=== PATIENT | male | born 1945 | race Caucasian/White ===

== ENCOUNTER 2020-11-24 05:32 | Day surgery (SDC) | payer MEDICARE ==
[2020-11-17 14:50] LABS: BASOPHILS # (AUTO) 0.1 X10'3 (0-0.2); BASOPHILS % (AUTO) 1.2 % (0-1); EOSINOPHILS # (AUTO) 0.3 X10'3 (0-0.9); EOSINOPHILS % (AUTO) 4.7 % (0-6); LYMPHOCYTES # (AUTO) 1.5 X10'3 (1.1-4.8); LYMPHOCYTES % (AUTO) 21.2 % (21-51); MEAN CORPUSCULAR HGB CONC 33.9 g/dL (33.0-36.5); MEAN CORPUSCULAR VOLUME 91.6 FL (78-98); MEAN PLATELET VOLUME 6.9 FL (7.4-10.4); MONOCYTES # (AUTO) 0.6 X10'3 (0-0.9); MONOCYTES % (AUTO) 9.2 % (2-12); NEUTROPHILS # (AUTO) 4.5 X10'3 (1.8-7.7); NEUTROPHILS % (AUTO) 63.7 % (42-75); PRE OP HEMATOCRIT 47.4 % (42.0-52.0); PRE OP PLATELET COUNT 271 X10'3 (140-440); RED BLOOD COUNT 5.17 X10'6 (4.70-6.10); RED CELL DISTRIBUTION WIDTH 14.1 % (11.5-14.5)
[2020-11-17 14:59] LABS: CLARITY,URINE CLEAR (Clear); COLOR,URINE YELLOW (Yellow); GLUCOSE, URINE NEGATIVE (Neg); KETONES,URINE NEGATIVE (Neg); LEUKOCYTE ESTERASE ,URINE NEGATIVE (Neg); NITRITES, URINE NEGATIVE (Neg); OCCULT BLOOD,URINE NEGATIVE (Neg); PH,URINE 5.5 (4.8-8.0); PROTEIN,URINE NEGATIVE (Neg); UROBILINOGEN,URINE 0.2 E.U/dL (0.2-1.0)
[2020-11-17 15:00] LABS: ALBUMIN 4.1 G/DL (3.4-5.0); ALBUMIN/GLOBULIN RATIO 1.3 (1.1-1.5); ALKALINE PHOSPHATASE 64 IU/L (46-116); BLOOD UREA NITROGEN 22 MG/DL (7-18); BUN/CREATININE RATIO 21.2 (5.4-32.0); CALCIUM 9.1 MG/DL (8.5-10.1); CHLORIDE 108 MMOL/L (99-107); CREATININE 1.04 MG/DL (0.60-1.10); PRE OP ALT 17 U/L (30-65); PRE OP ANION GAP 7 (8-16); PRE OP AST 13 U/L (10-37); PRE OP BILIRUB, TOTAL 0.4 MG/DL (0.0-1.0); PRE OP GLUCOSE 101 MG/DL (70-104); PRE OP SODIUM 145 MMOL/L (135-145); TOTAL CARBON DIOXIDE 29.6 MMOL/L (24-32); TOTAL PROTEIN 7.3 G/DL (6.4-8.2); eGFR 69 ML/MIN
[2020-11-17 15:04] LABS: UA COLLECTION TYPE VOIDED
[~2020-11-24] VITALS: Ht 172.7 cm; Wt 94.5 kg
[2020-11-24] VITALS (7 sets, daily range): BP systolic 120–158; BP diastolic 70–99
[~2020-11-24 05:32] MED LIST: PRAV10TA39 PO; TIMO1DRO8 EACHEYE; VALS1TAB77 PO; cefazolin/dext.iso 2gm/100ml IV ONE; famotidine 20mg tablet PO ONE; ringers solution, lacted 1,000 ML IV SCH
[2020-11-24] MEDS ORDERED: BUPIVAcaine/PF 2.5mg/ml (0.25%) 10ml vial ONE (07:39)
[2020-11-24] MEDS ORDERED: BUPIVAcaine 0.5% inj/PF 30 ML ONE (07:42)
[2020-11-24] MEDS ORDERED: bacitracin 15gm ointment TP ONE (07:42)
[2020-11-24] MEDS ORDERED: sevoflurane 250ml liquid IH ONE (07:51)
[2020-11-24] MEDS ORDERED: fentaNYL/PF 50MCG/1 ML 2ML syringe ONE (07:56)
[2020-11-24] MEDS ORDERED: midazolam 1 mg/ML 2ml injection ONE (07:57)
[2020-11-24] MEDS ORDERED: LIDOcaine 2% (20mg/ml) 5ml vial ONE (08:21)
[2020-11-24] MEDS ORDERED: dexamethasone sod phosphate 4mg/ml inj. ONE (08:21)
[2020-11-24] MEDS ORDERED: propofol inj 20 ML IV ONE (08:21)
[2020-11-24] MEDS ORDERED: ondansetron/PF 4mg/2ml inj ONE (08:21)
[2020-11-24] MEDS ORDERED: meperidine/PF 25mg/ml syringe IV PRN ×3 (08:40)
[2020-11-24] MEDS ORDERED: acetaminophen 1,000mg/100ml IV 100 ML IV PRN (08:40)
[2020-11-24] MEDS ORDERED: ringers solution, lacted 1,000 ML IV SCH (08:40)
[2020-11-24] MEDS ORDERED: ondansetron/PF 4mg/2ml inj IV PRN (08:40)
[2020-11-24] MEDS ORDERED: morphine 4 MG/ML inj SYRINge IV PRN (08:40)
[2020-11-24] MEDS ORDERED: labetalol 20mg/4ml (5mg/ml) syringe IV PRN (08:40)
[2020-11-24] MEDS ORDERED: hydrALAZINE 20mg/ml inj. IV PRN (08:40)
[2020-11-24] MEDS ORDERED: proCHLORperazine 10 MG/2 ml inj IV PRN (08:40)
[2020-11-24] MEDS ORDERED: morphine 2 MG/ML inj. syringe IV PRN (08:40)
--- NOTE | 2020-11-24 09:19 | NUR ---
ASSUME CARE PT AWAKE ALERT DENIES PAIN. SOFT CAST TO LEFT FOOT +CMS TO THE FOOT. CONT TO MONITOR Addendum: 11/24/20 at 0979 by Ronna Carbajal RN Amended: Links added.
--- NOTE | 2020-11-24 10:05 | NUR ---
PT MEETS CRITERIA TO DC HOME DC INSTR GIVEN NO ?'S OR CONCERNS, CALLED TO [facility] PT. Addendum: 11/24/20 at 1042 by Ronna Carbajal RN Amended: Links added.
== END 2020-11-24 10:19 | disposition home or self-care (01) ==
LOC: PAS 05:32
PROVIDERS: ATTEND Podiatrist Foot & Ankle Surgery
DX: M19.072 Primary osteoarthritis, left ankle and foot (principal); M25.775 Osteophyte, left foot; I10 Essential (primary) hypertension; H40.9 Unspecified glaucoma; Z96.653 Presence of artificial knee joint, bilateral; Z90.49 Acquired absence of other specified parts of digestive tract; Z98.890 Other specified postprocedural states; Z90.79 Acquired absence of other genital organ(s); Z87.891 Personal history of nicotine dependence; Z85.46 Personal history of malignant neoplasm of prostate; Z79.899 Other long term (current) drug therapy; Z20.822 Contact with and (suspected) exposure to COVID-19
CPT/HCPCS: 28122; 28740; 36415; 73620; 76000; 80053; 81003; 82948; 85025; 87635; 93005; A6223; C1713; C9803; J1100; J2001; J2250; J2405; J2704; J3010; J3490; Z7506; Z7508; Z7512; A4215; A4618; A6449; A7000; J7120